=== PATIENT | male | born 2000 ===

== ENCOUNTER 2020-11-05 19:31 | Emergency (ER) | payer SELFPAY ==
[2020-11-05] MEDS ORDERED: MORPHINE 4 MG/ML SYR ONE (20:06)
[2020-11-05] MEDS ORDERED: ONDANSETRON 4 MG/2 ML VIAL ONE (20:06)
[2020-11-05 20:09] LABS: Absolute Lymphocytes (CBC) 1.3 K/uL (0.7-4.9); Basophils % 0.4 % (0-1.3); Hematocrit 39.6 % (39.6-49.0); Lymphocytes % 11.1 % (15.3-44.8); MPV 8.7 fL (7.6-11.3); RBC Red Blood Cell Count 4.43 M/uL (4.33-5.43)
[2020-11-05 20:20] LABS: Protime INR 1.4
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
[2020-11-05 20:39] LABS: ALT/SGPT 25 U/L (12-78); AST/SGOT 17 U/L (15-37); Alkaline Phosphatase 159 U/L (45-117); BUN Blood Urea Nitrogen 12 mg/dL (7-18); Bicarbonate 22 mmol/L (21-32); Bilirubin Direct 0.2 mg/dL (0-0.2); Bilirubin Total 0.7 mg/dL (0.2-1.0); Glucose Level 130 mg/dL (74-106); Protein, Total 7.1 g/dL (6.4-8.2); Sodium Level 141 mmol/L (136-145)
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
[2020-11-05] MEDS ORDERED: TETANUS & DIPHTHERIA TOX,ADULT 0.5 ML VIAL ONE (22:12)
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
[2020-11-05 23:20] VITALS: BP 118/74; O2SAT 99
== END 2020-11-05 22:46 | disposition home or self-care (01) ==
LOC: ER 19:31
DX: S27.329A Contusion of lung, unspecified, initial encounter (principal); S40.012A Contusion of left shoulder, initial encounter; S80.212A Abrasion, left knee, initial encounter; S80.211A Abrasion, right knee, initial encounter; S70.312A Abrasion, left thigh, initial encounter; V28.4XXA Motorcycle driver injured in noncollision transport accident in traffic accident, initial encounter; Z23 Encounter for immunization
CPT/HCPCS: 36415; 70450; 70486; 71260; 72125; 74177; 76377; 80048; 80076; 82565; 85025; 85610; 85730; 86850; 86900; 86901; 90471; 90714; 96374; 96375; 99284; G0390; J2405; Q9967